=== PATIENT | male | born 1975 | race Two or more races ===

== ENCOUNTER 2017-04-12 23:17 | Emergency (ER) | payer OTHER ==
[~2017-04-12] VITALS: Ht 167.6 cm; Wt 72.6 kg
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
[2017-04-13] MEDS ORDERED: LIDOCAINE 1%/EPI 1:100,000 20 ML VIAL. INJ ONE (00:30)
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
[2017-04-13 01:27] VITALS: BP 121/68
== END 2017-04-13 01:29 | disposition home or self-care (01) ==
LOC: EEVIPCON 23:17 → ER 23:17
DX: S02.2XXA Fracture of nasal bones, initial encounter for closed fracture (principal); S01.81XA Laceration without foreign body of other part of head, initial encounter; Y04.0XXA Assault by unarmed brawl or fight, initial encounter; Y93.89 Activity, other specified; Y99.8 Other external cause status; Y92.89 Other specified places as the place of occurrence of the external cause
CPT/HCPCS: 12013; 70450; 70486; 72125; 99284; J3490

== ENCOUNTER 2017-04-18 22:26 | Emergency (ER) | payer OTHER ==
[~2017-04-18] VITALS: Ht 175.3 cm; Wt 67.6 kg
[2017-04-18 23:01] VITALS: BP 146/97
[2017-04-18] MEDS ORDERED: HYDROcodone/APAP 5/325MG 1 TAB TABLET PO ONE (23:15)
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
[2017-04-18] MEDS ORDERED: TRAM50TA PO (23:49)
--- NOTE | 2017-04-19 06:27 | EKG ---
[facility] [address] [place] [address] Test Date: 2017-04-18 Test Time: 23:22:33 Pat Name: SHRUTHI ALVARADO Department: Room: Gender: M [employer] Curator: : 1975 Requested By: KUMAR HYMAN Order Number: [id number] Reading MD: Measurements Intervals [place] Rate: 71 P: 54 TX: 162 QRS: 10 QRSD: 78 T: 46 QT: 340 QTc: 374 Interpretive Statements SINUS RHYTHM RVH WITH REPOLARIZATION ABNORMALITY RI6.01 Unconfirmed report No previous ECG available for comparison
--- NOTE | 2017-04-19 08:42 | RAD ---
EXAM: Frontal chest with 2 view left rib series. HISTORY: Left chest pain. COMPARISON: None. FINDINGS: There are calcified granulomas within the left upper lobe. There are no confluent infiltrates. There is no pneumothorax or pleural effusion. The heart is not enlarged. There are no displaced left rib fractures. IMPRESSION: 1. No displaced left rib fractures. No confluent infiltrates.
== END 2017-04-19 00:11 | disposition home or self-care (01) ==
LOC: ER 22:26
DX: R07.89 Other chest pain (principal); R07.81 Pleurodynia
CPT/HCPCS: 71101; 93005; 99284

== ENCOUNTER 2017-04-25 14:04 | Emergency (ER) | payer OTHER ==
[~2017-04-25 14:04] MED LIST: TRAM50TA PO
[2017-04-25 14:25] VITALS: BP 117/75
--- NOTE | 2017-04-25 15:12 | PHYS DOC ---
Past Medical History Past Medical History: No Pertinent History Past Surgical History: No Surgical History Alcohol Use: Occasionally Drug Use: None Adult General Chief Complaint Chief Complaint: WOUND RECHECK/SUTURE REMOVAL [facility] HPI Patient is a 41 year old male presents to the emergency department stating that he had 5 total sutures placed on April 12. He denies any drainage or discharge coming from the sites. He denies any fever, chills or any nausea or vomiting. Patient states he is here for suture removal. Review of Systems Review of Systems Constitutional: Denies fever or chills [] Eyes: Denies change in visual acuity, redness, or eye pain [] Respiratory: Denies cough or shortness of breath [] Cardiovascular: No additional information not addressed in HPI [] Musculoskeletal: Denies back pain or joint pain [] Integument: Denies rash or skin lesions. Patient here for suture removal. Neurologic: Denies headache, focal weakness or sensory changes [] Allergies Allergies Allergies Coded Allergies Type Severity Reaction Last Updated Verified No Known Drug Allergies 04/12/17 No Physical Exam Physical Exam Constitutional: Well developed, well nourished, no acute distress, non-toxic appearance. [] HENT: Normocephalic, atraumatic, bilateral external ears normal, oropharynx moist, no oral exudates, nose normal. [] Eyes: PERRLA, EOMI, conjunctiva normal, no discharge. [] Neck: Normal range of motion, no tenderness, supple, no stridor. [] Cardiovascular:Heart rate regular rhythm Lungs & Thorax: No respiratory distress noted Skin: Warm, dry, no erythema, no rash. Patient with 3 sutures noted on the left cheek 2 sutures noted in the left eyebrow. Areas appear to have edges approximated very well. No drainage or discharge noted from the sites. Extremities: No tenderness, no cyanosis, no clubbing, ROM intact, no edema. [] Neurologic: Alert and oriented X 3, normal motor function, normal sensory function, no focal deficits noted. [] Psychologic: Affect normal, judgement normal, mood normal. [] Current Patient Data Vital Signs Vital Signs Date Time Temp Pulse Resp B/P (MAP) Pulse Ox O2 Delivery O2 Flow Rate FiO2 04/25/17 14:25 98.2 71 18 99 Room Air 98.2 EKG EKG [] Radiology/Procedures Radiology/Procedures [] Course & Med Decision Making Course & Med Decision Making Pertinent Labs and Imaging studies reviewed. (See chart for details) Patient will be discharged home in stable condition signs and symptoms to return back to emergency prior has been provided. Patient was provided with signs and symptoms of infection: Redness, warmth, tenderness or any yellow/ greenish transient become from the site physician occur follow-up to primary care physician immediately. Patient agrees with discharge instructions, treatment regimens and follow-up recommendations. All questions and concerns have been answered at patient's bedside. [] Dragon Disclaimer Dragon Disclaimer This electronic medical record was generated, in whole or in part, using a voice recognition dictation system. Departure Departure Impression: Primary Impression: Visit for suture removal Disposition: HOME, SELF-CARE Condition: STABLE Referrals: NO PCP (PCP) Patient Instructions: Suture Removal-Brief Additional Instructions: Activity as tolerated Keep the area clean and dry Clean the site with soap and water Watch for signs and symptoms of infection: redness, warmth, tenderness or yellow /greenish drainage noted from the site Followup with primary care provider as needed Return to emergency department as needed for signs and symptoms that become worse. MARI BARTON APRN Apr 25, 2017 15:12
== END 2017-04-25 15:19 | disposition home or self-care (01) ==
LOC: ER 14:04
DX: S01.112D Laceration without foreign body of left eyelid and periocular area, subsequent encounter (principal); X58.XXXD Exposure to other specified factors, subsequent encounter
CPT/HCPCS: 99281

== ENCOUNTER 2017-04-29 21:35 | Emergency (ER) | payer OTHER ==
[~2017-04-29] VITALS: Ht 165.1 cm; Wt 70.3 kg
[2017-04-29] MEDS ORDERED: IV NORMAL SALINE 1000ML BAG 1,000 ML IV SCH (22:00)
[2017-04-29 22:12] LABS: BASO % 0 % (0-3); EOS % 1 % (0-3); HEMATOCRIT 42.2 % (39.0-53.0); HEMOGLOBIN 13.6 g/dL (13.0-17.5); LYMPH # 0.5 x10^3/uL (1.0-4.8); LYMPH % 7 % (24-48); MEAN CORPUSCULAR HEMOGLOBIN 27 pg (25-35); MEAN CORPUSCULAR HGB CONC 32 g/dL (31-37); MEAN CORPUSCULAR VOLUME 84 fL (79-100); MONO % 5 % (0-9); NEUT % 87 % (31-73); PLATELET COUNT 131 x10^3/uL (140-400); RED BLOOD COUNT 5.06 x10^6/uL (4.30-5.70); RED CELL DISTRIBUTION WIDTH 13.9 % (11.5-14.5); WHITE BLOOD COUNT 7.7 x10^3/uL (4.0-11.0)
[2017-04-29] MEDS ORDERED: ACETAMINOPHEN 500 MG TABLET PO ONE (22:15)
[2017-04-29] MEDS ORDERED: ONDANSETRON PF 4 MG/2 ML VIAL. IV ONE (22:15)
[2017-04-29 22:32] LABS: CALCIUM 8.6 mg/dL (8.5-10.1); GFR 83.2; POTASSIUM 3.6 mmol/L (3.5-5.1)
[2017-04-29 22:44] LABS: ALBUMIN 4.1 g/dL (3.4-5.0); ALBUMIN/GLOBULIN RATIO 1.2 (1.0-1.7); TOTAL BILIRUBIN 0.8 mg/dL (0.2-1.0); TOTAL PROTEIN 7.5 g/dL (6.4-8.2)
[2017-04-29 23:09] LABS: BILIRUBIN,URINE NEGATIVE (NEG); GLUCOSE,URINE NEGATIVE (NEG); NITRITE,URINE NEGATIVE (NEG); PROTEIN,URINE NEGATIVE (NEG-TRACE); UROBILINOGEN,URINE 0.2 mg/dL (0.2 mg/dL)
[2017-04-29 23:10] LABS: % EOS 1 % (0-5); PLT ESTIMATE ADEQUATE (ADEQUATE)
[2017-04-29] MEDS ORDERED: IBUPROFEN 600 MG TABLET. PO ONE (23:15)
[2017-04-29 23:20] LABS: BACTERIA,URINE 0 /HPF (0-FEW); RBC,URINE 0 /HPF (0-2); SQUAMOUS EPITHELIAL CELL,UR FEW /LPF; WBC,URINE OCC /HPF (0-4)
[2017-04-29 23:52] LABS: OBC FLU VALID
[2017-04-30] MEDS ORDERED: IV NORMAL SALINE 1000ML BAG 1,000 ML IV ONE (00:15)
[2017-04-30] MEDS ORDERED: BENZONATATE 100 MG CAPSULE. PO ONE (00:30)
[2017-04-30] MEDS ORDERED: AZITHROMYCIN 250 MG TABLET. PO ONE (00:30)
[2017-04-30 01:00] VITALS: BP 102/60
[2017-04-30] MEDS ORDERED: AZIT250T6 PO (01:04)
[2017-04-30] MEDS ORDERED: BENZ100C PO (01:04)
[2017-04-30] MEDS ORDERED: PROAIR HFA8.5 GM INH (01:04)
--- NOTE | 2017-04-30 02:12 | ED.ADGEN ---
Past Medical History Past Medical History: No Pertinent History Past Surgical History: No Surgical History Alcohol Use: Occasionally Drug Use: None Adult General Chief Complaint Chief Complaint: FEVER HPI HPI Patient is a 41 year old man, with no significant past medical history, who presents to the emergency department with complaint of fever that is subjective , cough is nonproductive, body aches, headache, nausea and vomiting, especially posttussive, and chest soreness over the past 2 days. Also complaining of headache, no neck stiffness or blurred vision, no focal deficits. Patient states that his symptoms began yesterday when he was at work, he began feeling ill, did take ibuprofen without relief. Patient states it is worse today, with a persistent cough or development of chest discomfort, denies any shortness of breath, states it experiencing subjective fevers and chills at home but did not take his temperature with thermometer. Patient is noted be febrile at 101.1 upon arrival to the emergency department, tachycardic in the 1 teens. He denies any sore throat or rhinorrhea, any sick contacts or exposures, any travel, any history of high blood problems, any swelling extremities, any rashes. Patient states he took ibuprofen around 10:00 this morning. He states that he does smoke cigarettes daily, denies any drug or alcohol ingestion, any injuries or other complaints. Denies any similar symptoms previously. He states he received his flu vaccination at his place of employment approximately 3 days ago. Review of Systems Review of Systems Constitutional: Denies fever or chills. [] Eyes: Denies change in visual acuity. [] HENT: Denies nasal congestion or sore throat. [] Respiratory: Cough, nonproductive, no shortness of breath. Cardiovascular: Chest soreness across the anterior portion of the chest and lower ribs, with coughing. No edema. GI: Denies abdominal pain, nausea, vomiting, bloody stools or diarrhea. [] : Denies dysuria. [] Musculoskeletal: Body aches. Integument: Denies rash. [] Neurologic: Denies focal weakness or sensory changes. Headache. Endocrine: Denies polyuria or polydipsia. [] Lymphatic: Denies swollen glands. [] Psychiatric: Denies depression or anxiety. [] Current Medications Current Medications Current Medications Medications (Trade) Dose Ordered Sig/Ben Start Time Stop Time Status Last Admin Dose Admin Acetaminophen (Tylenol) 1,000 mg 1X ONCE 04/29/17 22:15 04/29/17 22:27 DC 04/29/17 22:22 1,000 MG Azithromycin (Zithromax) 500 mg 1X ONCE 04/30/17 00:30 04/30/17 00:31 DC 04/30/17 00:19 500 MG Benzonatate (Tessalon Perle) 100 mg 1X ONCE 04/30/17 00:30 04/30/17 00:31 DC 04/30/17 00:19 100 MG Ibuprofen (Motrin) 600 mg 1X ONCE 04/29/17 23:15 04/29/17 23:16 DC 04/29/17 23:23 600 MG Ondansetron HCl (Zofran) 4 mg 1X ONCE 04/29/17 22:15 04/29/17 22:27 DC 04/29/17 22:23 4 MG Sodium Chloride 1,000 ml @ 1,000 mls/hr 1X ONCE 04/30/17 00:15 04/30/17 01:14 DC 04/30/17 00:06 1,000 MLS/HR Allergies Allergies Allergies Coded Allergies Type Severity Reaction Last Updated Verified No Known Drug Allergies 04/12/17 No Physical Exam Physical Exam Constitutional: Well developed, well nourished, no acute distress, non-toxic appearance. [] HENT: Normocephalic, atraumatic, bilateral external ears normal, oropharynx moist, no oral exudates, nose normal. [] Eyes: PERRLA, EOMI, conjunctiva normal, no discharge. [] Neck: Normal range of motion, no tenderness, supple, no stridor. [] Cardiovascular:Heart rate regular rhythm, no murmur , S1, S2, rubs or gallops, mild tachycardia.[] Lungs & Thorax: Patient mild coarse breath sounds at right lung base, no rales identified. No wheezing. Abdomen: Bowel sounds normal, soft, no tenderness, no rebound, rigidity, no guarding, no masses, no pulsatile masses. [] Skin: Warm, dry, no erythema, no rash. [] Back: No tenderness, no CVA tenderness. [] Extremities: No tenderness, no cyanosis, no clubbing, ROM intact, no edema. Negative Homans sign.[] Neurologic: Alert and oriented X 3, normal motor function, normal sensory function, no focal deficits noted. [] Psychologic: Affect normal, judgement normal, mood normal. [] Current Patient Data Vital Signs Vital Signs Date Time Temp Pulse Resp B/P (MAP) Pulse Ox O2 Delivery O2 Flow Rate FiO2 04/30/17 01:00 100 21 102/60 (74) 96 Room Air 04/30/17 00:00 99.1 99.1 Lab Values Laboratory Tests Test 04/29/17 21:49 04/29/17 23:00 04/29/17 23:28 04/29/17 23:34 White Blood Count 7.7 x10^3/uL (4.0-11.0) Red Blood Count 5.06 x10^6/uL (4.30-5.70) Hemoglobin 13.6 g/dL (13.0-17.5) Hematocrit 42.2 % (39.0-53.0) Mean Corpuscular Volume 84 fL (79-100) Mean Corpuscular Hemoglobin 27 pg (25-35) Mean Corpuscular Hemoglobin Concent 32 g/dL (31-37) Red Cell Distribution Width 13.9 % (11.5-14.5) Platelet Count 131 x10^3/uL (140-400) L Neutrophils (%) (Auto) 87 % (31-73) H Lymphocytes (%) (Auto) 7 % (24-48) L Monocytes (%) (Auto) 5 % (0-9) Eosinophils (%) (Auto) 1 % (0-3) Basophils (%) (Auto) 0 % (0-3) Neutrophils # (Auto) 6.7 x10^3uL (1.8-7.7) Lymphocytes # (Auto) 0.5 x10^3/uL (1.0-4.8) L Monocytes # (Auto) 0.4 x10^3/uL (0.0-1.1) Eosinophils # (Auto) 0.1 x10^3/uL (0.0-0.7) Basophils # (Auto) 0.0 x10^3/uL (0.0-0.2) Segmented Neutrophils % 83 % (35-66) H Band Neutrophils % 6 % (0-9) Lymphocytes % 6 % (24-48) L Monocytes % 4 % (0-10) Eosinophils % 1 % (0-5) Platelet Estimate Adequate (ADEQUATE) Sodium Level 137 mmol/L (136-145) Potassium Level 3.6 mmol/L (3.5-5.1) Chloride Level 103 mmol/L (98-107) Carbon Dioxide Level 26 mmol/L (21-32) Anion Gap 8 (6-14) Blood Urea Nitrogen 13 mg/dL (8-26) Creatinine 1.0 mg/dL (0.7-1.3) Estimated GFR (Cockcroft-Gault) 83.2 BUN/Creatinine Ratio 13 (6-20) Glucose Level 110 mg/dL (70-99) H Calcium Level 8.6 mg/dL (8.5-10.1) Total Bilirubin 0.8 mg/dL (0.2-1.0) Aspartate Amino Transferase (AST) 51 U/L (15-37) H Alanine Aminotransferase (ALT) 108 U/L (16-63) H Alkaline Phosphatase 100 U/L (46-116) Total Protein 7.5 g/dL (6.4-8.2) Albumin 4.1 g/dL (3.4-5.0) Albumin/Globulin Ratio 1.2 (1.0-1.7) Urine Collection Type Unknown Urine Color Yellow Urine Clarity Clear Urine pH 6.0 Urine Specific [place] 1.015 Urine Protein Negative mg/dL (NEG-TRACE) Urine Glucose (UA) Negative mg/dL (NEG) Urine Ketones (Stick) Negative mg/dL (NEG) Urine Blood Negative (NEG) Urine Nitrite Negative (NEG) Urine Bilirubin Negative (NEG) Urine Urobilinogen Dipstick 0.2 mg/dL (0.2 mg/dL) Urine Leukocyte Esterase Negative (NEG) Urine RBC 0 /HPF (0-2) Urine WBC Occ /HPF (0-4) Urine Squamous Epithelial Cells Few /LPF Urine Bacteria 0 /HPF (0-FEW) Influenza Type A Antigen Negative (NEGATIVE) Influenza Type B Antigen Negative (NEGATIVE) Lactic Acid Level 0.6 mmol/L (0.4-2.0) Laboratory Tests 04/29/17 21:49 Laboratory Tests 04/29/17 21:49 EKG EKG EC: Sinus tachycardia, heart rate 116 beats/minute, contour abnormality is noted in the anterior leads, with a QTC of 392, VA 142, QRS is 74, incomplete right bundle-branch block noted, right ventricular hypertrophy noted. Abnormal ECG, does not meet STEMI criteria. As interpreted by me. Radiology/Procedures Radiology/Procedures Chest x-ray: Increased initial markings noted bilaterally, no discrete consolidations, pneumothorax, normal cardiopulmonary silhouette. As interpreted by me. Course & Med Decision Making Course & Med Decision Making Pertinent Labs and Imaging studies reviewed. (See chart for details) Patient with cough, chest x-ray reveals increased central markings without consolidation, patient with coarse breath sounds as stated, no hypoxia, fever as stated, which resolved after administration of acetaminophen or ibuprofen the ED, heart rate improved after administration of medications as stated IV fluids. Patient with left shift without leukocytosis, normal lactic noted to have a slight bandemia. No electrolyte abnormality is identified. Initially complaining of nausea, was administered Zofran in the ED with resolution, tolerating by mouth medications and then by mouth fluids, and food with Tessalon Perle, azithromycin, Tylenol and ibuprofen without issue as stated. Oxygen saturation remained in the upper 90s with ambulation, heart rate in the low 100s to 1 teens, dropping down to 90s at rest. Did discuss findings with patient, he is anxious to be discharged home as he is feeling better, needs to report to work tomorrow. Did discuss with patient that he may require several days of rest, he was given precautions to prompt return to the ED, instructed to stay well-hydrated, to continue use of albuterol inhaler, Tessalon Perle, 4 day course of azithromycin, to return to the ED for concerning symptoms as discussed, to follow-up with primary care provider. Patient voiced understanding and agreement with plan and precautions as stated, discharged home in stable condition with prescriptions. Dragon Disclaimer Dragon Disclaimer This electronic medical record was generated, in whole or in part, using a voice recognition dictation system. Departure Impression: Primary Impression: Fever Additional Impression: Cough Disposition: HOME, SELF-CARE Condition: IMPROVED Scripts Albuterol Sulfate (PROAIR HFA INHALER) 8.5 Gm Hfa.aer.ad 1-2 PUFF INH PRN Q4HRS Y for SHORTNESS OF BREATH, #1 INHALER 0 Refills Prov: GALA BOLDEN DO 04/30/17 Azithromycin (AZITHROMYCIN TABLET) 250 Mg Tablet 250 MG PO DAILY for ANTI-BIOTIC for 4 Days, #4 TAB 0 Refills Prov: GALA BOLDEN DO 04/30/17 Benzonatate (TESSALON PERLE) 100 Mg Capsule 100 MG PO PRN TID Y for COUGH, #15 CAP Prov: GALA BOLDEN DO 04/30/17 Problem Qualifiers GALA BOLDEN DO Apr 30, 2017 02:12
--- NOTE | 2017-04-30 06:09 | EKG ---
[facility] [address] [place] [address] Test Date: 2017-04-29 Test Time: 22:06:12 Pat Name: SHRUTHI ALVARADO Department: Room: Gender: M Urologic Surgeon: : [id number] Requested By: GALA BOLDEN Order Number: [id number] Reading MD: Measurements Intervals [place] Rate: 116 P: 56 IN: 142 QRS: -37 QRSD: 74 T: 43 QT: 278 QTc: 392 Interpretive Statements SINUS TACHYCARDIA LEFT ATRIAL ABNORMALITY ABNORMAL LEFT AXIS DEVIATION LEFT ANTERIOR FASCICULAR BLOCK INCOMPLETE RIGHT BUNDLE BRANCH BLOCK RVH WITH REPOLARIZATION ABNORMALITY RI6.01 Unconfirmed report No previous ECG available for comparison
--- NOTE | 2017-04-30 07:18 | RAD ---
Portable chest, 04/29/2017: History: Cough, shortness of breath The heart size and pulmonary vascularity are normal. Tiny left upper lobe nodules are probably due to old granulomatous disease. No acute infiltrate is seen. There is no evidence of pleural fluid. IMPRESSION: No acute cardiopulmonary abnormality is detected.
== END 2017-04-30 01:17 | disposition home or self-care (01) ==
LOC: ER 21:35
DX: R50.9 Fever, unspecified (principal); R05 Cough; R51 Headache; R07.89 Other chest pain; R11.2 Nausea with vomiting, unspecified; R52 Pain, unspecified
CPT/HCPCS: 36415; 71010; 80053; 81001; 83605; 85007; 85025; 87804; 93005; 96361; 96374; 99285; J2405; J7030; Q0144